=== PATIENT | female | born 1960 | race Caucasian/White ===

== ENCOUNTER 2017-04-01 09:03 | Emergency (ER) | payer OTHER ==
[~2017-04-01] VITALS: Ht 170.2 cm; Wt 82.6 kg
[~2017-04-01 09:03] MED LIST: BIOTIN1 MG PO; CELEXA; ESTRADIOL 2 MG OR; MICRO-K 10 MEQ10 MEQ OR; UNICOMPLEX M TA1 TA1 PO; [UNRECOGNIZED DRUG - OTHER] OR
[2017-04-01] MEDS ORDERED: CELEXA20 MG PO (09:10)
[2017-04-01 09:57] LABS: INFLUENZA A ANTIGEN None Detected (None Detect); INFLUENZA B ANTIGEN None Detected (None Detect)
[2017-04-01] MEDS ORDERED: CEFDINIR300 MG PO (13:19)
[2017-04-01] MEDS ORDERED: ULTRAM 50MG TAB50 MG PO (13:19)
[2017-04-01 13:55] VITALS: BP 112/62
== END 2017-04-01 13:56 | disposition home or self-care (01) ==
LOC: M.ERS 09:03
PROVIDERS: Personal Emergency Response Attendant
DX: J18.9 Pneumonia, unspecified organism (principal); R51 Headache; Z90.710 Acquired absence of both cervix and uterus; Z90.49 Acquired absence of other specified parts of digestive tract; Z88.0 Allergy status to penicillin